=== PATIENT | female | born 1990 | race Caucasian/White ===

== ENCOUNTER → 2017-09-27 12:04 | Outpatient (CLI) | payer OTHER, SELFPAY ==
--- NOTE | 2017-09-27 12:07 | DI.US.S_ITS ---
PROCEDURE: US OB >= 14 WEEKS FETUS INDICATIONS: 20 WEEK SURVEY OUTSIDE/PRIOR DATING DATA: Last menstrual period (LMP): 05/10/2017. LMP-based estimated date of delivery (KAYLEN): 02/12/2018. First dating scan (date and location): 07/21/2017. Estimated date of delivery (KAYLEN) from first dating scan: 02/08/2018. TECHNIQUE: Real-time scanning was performed of the fetus, with image documentation and biometric measurements. Endovaginal scanning: None required COMPARISON: [facility], , OB COMPLETE LESS THAN 14 WKS, 07/21/2017, 13:13. [facility], , US OB >= 14 WEEKS FETUS, 09/15/2017, 12:30. FINDINGS: General: A single living intrauterine gestation is present. Presentation: Breech. Placenta: Placental position is anterior, without previa. Amniotic fluid index: 12.9 cm, normal range is 5-24 cm. heart rate: 155 beats per minute. Maternal cervical canal: 3.6 cm long. Normal lower limit is 2.5 cm. biometrics: Biparietal diameter: 20 weeks 5 days Head circumference: 20 weeks 4 days Abdominal circumference: 19 weeks 6 days Femur length: 20 weeks one day Estimated gestational age from initial scan: 20 weeks 6 days Composite gestational age from present scan: 20 weeks 2 days, normal growth Estimated weight and percentile: 330 g at the 12th percentile Measurement variability for biometric dating: +/- 7 days from 14 weeks to 15 weeks 6 days gestation, +/- 10 days from 16 weeks to 21 weeks 6 days gestation, +/- 2 weeks from 22 weeks to 27 weeks 6 days gestation, +/- 3 weeks for 28 weeks gestation or later. weight reference: 4500 g or EFW >90/95% is considered macrosomia or large for gestational age. EFW <10% is small for gestational age. EFW 5% or less is considered intra-uterine growth restriction. Anatomic survey: Neuro: Ventricles are non-dilated at less than 10 mm. Cisterna magna is normal at 3-11 mm. Cerebellum is normal in size and morphology. Nuchal skin fold: Normal at less than 6 mm between 14-21 weeks gestational age. Face: Nose and lips, facial profile are normal. Spine: No evidence for spina bifida. Heart: 4-chambered heart is present, ventricular outflow tracts not well seen secondary to position. Diaphragm: Diaphragm is intact. Stomach: Left-sided stomach is present. Kidneys: No hydronephrosis. Normal is less than 5 mm in 2nd trimester, less than 7 mm in 3rd trimester. Cord: 3-vessel cord has orthotopic insertion. Bladder: Normal in size. Extremities: All 4 extremities identified. IMPRESSION: Single, live intrauterine gestation in breech position showing composite gestational age of 20 weeks 2 days, normal growth and normal anatomy although cardiac outflow tracts are not well seen. Dictated by: Emery Hackett M.D. on 09/27/2017 at 14:16 Approved by: Emery Hackett M.D. on 09/27/2017 at 14:19
== END ==
PROVIDERS: PCP Family Medicine; Visit Provider Obstetrics & Gynecology
DX: Z34.92 Encounter for supervision of normal pregnancy, unspecified, second trimester (principal); Z3A.20 20 weeks gestation of pregnancy
CPT/HCPCS: 76811

== ENCOUNTER → 2017-11-17 09:58 | Outpatient (CLI) | payer OTHER, SELFPAY ==
[2017-11-17 12:27] LABS: Hematocrit 38.9 % (36-46); Hemoglobin 13.3 g/dL (12.0-16.0)
[2017-11-17 12:45] LABS: Free T4, Direct Thyroxine 1.33 ng/dL (0.78-2.19)
[2017-11-17 12:59] LABS: Thyroid Stimulating Hormone 2.31 uIU/mL (0.47-4.68)
[2017-11-17 21:44] LABS: GTT (PREG) 1 Hour PP 50gm Dose 61 mg/dL (76-139)
== END ==
PROVIDERS: Obstetrics & Gynecology; PCP Family Medicine; Visit Provider Family Medicine
DX: E03.9 Hypothyroidism, unspecified (principal); Z34.82 Encounter for supervision of other normal pregnancy, second trimester
CPT/HCPCS: 36415; 82950; 84439; 84443; 85014; 85018; 86850

== ENCOUNTER → 2018-01-12 16:53 | Outpatient (CLI) | payer OTHER, SELFPAY ==
[2018-01-13 21:22] LABS: Strep Grp B PCR NEG for Grp B Strep
== END ==
PROVIDERS: PCP Family Medicine; Visit Provider Obstetrics & Gynecology
DX: Z34.83 Encounter for supervision of other normal pregnancy, third trimester (principal)
CPT/HCPCS: 87653

== ENCOUNTER 2018-02-07 05:58 | Inpatient (IN) | payer OTHER, SELFPAY ==
[2018-02-07] MEDS: LACTATED RINGERS 1,000 ML 999 ML IV ×2 (06:40→07:42)
--- NOTE | 2018-02-07 07:21 | PM.PREOP ---
Pre-operative Note Interval Note Pre-op Check: Yes History & Physical Reviewed by Physician Changes: No
[2018-02-07 07:43] VITALS: BP 100/71
[2018-02-07 07:55] LABS: Add Manual Diff / Slide Review NO; Basophils Percent Auto 0.6 % (0-2); Eosinophils Percent Auto 1.5 % (2-4); Hematocrit 40.5 % (36-46); Hemoglobin 14.1 g/dL (12.0-16.0); Lymphocytes Percent Auto 26.8 % (25-40); Mean Corpuscular HGB Conc 34.8 % (30-36); Mean Corpuscular Hemoglobin 30.2 PG (26-34); Mean Corpuscular Volume 86.8 fL (80-100); Monocytes Percent Auto 4.2 % (3-14); Neutrophils Absolute Auto 6600 /uL (3000-5900); Neutrophils Percent Auto 66.9 % (50-75); Platelet Count 295 X10^3/uL (150-400); Red Blood Cell Count 4.67 X10^6/uL (4.0-5.2); White Blood Cell Count 9.8 X10^3/uL (4.5-11.0)
[2018-02-07] MEDS: CEFAZOLIN 2 GM/100 ML FROZ.PIGGY IV (08:05)
--- NOTE | 2018-02-07 08:46 | SUR.OPER ---
Supine on Padded OR bed, head on pillow, safety belt at thigh, arms secured on padded arm boards at <90 degrees abduction. Bump under right buttock. Legs uncrossed with pillow under knees, gel pad to heels, tape over blanket to lower legs.
[2018-02-07] MEDS: SODIUM CHLORIDE 0.9% 9 ML, TRIAMCINOLONE 10 MG INJ (08:56)
[2018-02-07 09:10] VITALS: BP 100/65; PULSE 66; RESP 13; TEMP 36.7; O2SAT 100
[2018-02-07 09:15] VITALS: BP 94/56; PULSE 69; RESP 14; O2SAT 100
[2018-02-07 09:20] VITALS: BP 93/59; PULSE 62; RESP 13; TEMP 36.7; O2SAT 100
[2018-02-07 09:25] VITALS: BP 90/58; PULSE 61; RESP 13; TEMP 36.8; O2SAT 100
--- NOTE | 2018-02-07 09:34 | P.OP_ITS ---
Operative Date/Time/Diagnoses Date of procedure: 02/07/18 Time of procedure: 09:29 Pre-op diagnosis: 39 weeks gestation Previous C section Keloid scar of Pfannenstiel incision Post-op diagnosis: same Procedure: Procedures Operation Date: 02/07/18 07:45 Actual Procedures Side Surgeon p Repeat Section with previous scar revision. Viable male at 0825, apgars 9/9 Jennifer Toribio MD Indications: 39 weeks gestation Previous section He laid scar of Pfannenstiel incision Surgeon: Jennifer Toribio Counselor Education Professor: Lizeth Salcido Anesthesia Type: Spinal (with Duramorph) Operative Notes Findings: Live male in the left occiput transverse presentation Normal uterus, tubes, and ovaries Keloid scar of the Pfannenstiel incision Fascial adhesions Closure Type: primary Specimen(s): other (Cord bloods, placenta) Applied: catheter Estimated blood loss (mL): 500 Blood products transfused: none Procedure in detail: The patient was taken to the operating room where she was placed in the seated position. Spinal anesthesia with Duramorph was administered. The patient was then placed in the dorsal supine position with a leftward tilt. She was prepped and draped in the usual sterile fashion. A timeout was performed. After spinal analgesia was found to be adequate, an elliptical incision was made around the keloid Pfannenstiel incision and the skin and underlying tissue were removed. The incision was carried through to the underlying layer of fascia. The fascia was nicked in the midline, and the incision extended bilaterally with the Camacho scissors. The superior aspect of the fascial incision was grasped with a Serg clamps, elevated, and the underlying rectus muscles dissected off sharply and bluntly. Attention was then turned to the inferior aspect of this incision which in a similar fashion was grasped with a Holabird clamps, elevated, and the underlying rectus muscles dissected off sharply and bluntly. The rectus muscles were in the midline. The peritoneum was identified, grasped between 2 hemostats well above the bladder, and entered sharply with the Metzenbaum scissors. This incision was extended superiorly and inferiorly with good visualization of the bladder. The bladder blade was inserted. The vesicouterine peritoneum was identified, grasped with the pickup, and entered sharply with the Metzenbaum scissors. This incision was extended bilaterally, and the bladder flap was created digitally. The bladder blade was reinserted. The lower uterine segment was incised in a transverse fashion with the scalpel. Upon entering the amniotic sac there was moderate amount of clear amniotic fluid. The infant's head was delivered without vacuum assistance. The nose and mouth were suctioned with bulb suction. The remainder of the body delivered without difficulty. The cord was double clamped and cut. The infant was handed off to waiting RN and RT. The placenta was delivered manually. The uterus was cleared of all clots and debris. The uterine incision was repaired with #1 chromic in a running interlocking fashion, and a second layer the same suture was used for an imbricating layer. Hemostasis was achieved. The tubes and ovaries were examined and were found to be normal. The gutters were cleared of all clots and debris. The bladder flap was reapproximated using 2-0 Vicryl in a running fashion. The parietal peritoneum was closed using 2-0 Vicryl in a running fashion. The fascia was reapproximated using 0 Vicryl in a running fashion. The subcutaneous layer was copiously irrigated with warm normal saline. 5 simple interrupted sutures of 3-0 Vicryl were placed to reapproximate the subcutaneous layer. The skin was closed with 4-0 undyed Vicryl in a subcuticular fashion. 10 cc of a solution of 10 mg of Kenalog in 9.9 cc of normal saline were injected along underneath the skin along the incision with 1 mg of Kenalog per cm of tissue. Steri-Strips were placed. An Aquacell dressing was placed. The uterus was expressed of a small amount of old blood. Sponge, lap, and instrument counts were correct x-2. The patient tolerated the procedure well, and was taken to PACU in stable condition. Complications: none Post-operative Condition: stable Disposition: PACU Plan for aftercare: To Center after recovery
[2018-02-07 09:39] VITALS: BP 92/63; PULSE 62; RESP 10; TEMP 36.8; O2SAT 100
[2018-02-07] MEDS: OXYCODONE/ACETAMINOPHEN 5/325 TABLET 2 TAB PO ×3 (11:26→19:30)
[2018-02-07] MEDS: LACTATED RINGERS 1,000 ML 100 ML IV (14:25)
[2018-02-07] MEDS: KETOROLAC 30 MG/ML VIAL IV ×2 (14:25→20:31)
[2018-02-08] MEDS: KETOROLAC 30 MG/ML VIAL IV (02:32)
[2018-02-08] MEDS: LEVOTHYROXINE 150 MCG TABLET PO (02:32)
[2018-02-08] MEDS: OXYCODONE/ACETAMINOPHEN 5/325 TABLET 2 TAB PO ×4 (03:34→20:03)
[2018-02-08 06:35] LABS: Hematocrit 40.8 % (36-46); Hemoglobin 14.2 g/dL (12.0-16.0)
[2018-02-08] MEDS: PRENATAL VIT,CALC/IRON/FOLIC 1 TABLET 1 TAB PO (07:51)
[2018-02-08] MEDS: DOCUSATE 250 MG CAPSULE PO (07:51)
[2018-02-08] MEDS: IBUPROFEN 600 MG TABLET PO ×3 (07:52→20:03)
[2018-02-09] MEDS: OXYCODONE/ACETAMINOPHEN 5/325 TABLET 2 TAB PO ×3 (00:06→08:10)
[2018-02-09] MEDS: IBUPROFEN 600 MG TABLET PO (02:16)
[2018-02-09] MEDS: LEVOTHYROXINE 150 MCG TABLET PO (04:00)
[2018-02-09 07:00] VITALS: BP 111/77; PULSE 76; RESP 16; TEMP 36.4
[2018-02-09] MEDS: PRENATAL VIT,CALC/IRON/FOLIC 1 TABLET 1 TAB PO (08:10)
[2018-02-09] MEDS: DOCUSATE 250 MG CAPSULE PO (08:10)
[2018-02-09 09:35] VITALS: BP 111/77; PULSE 76; RESP 16; TEMP 36.4
--- NOTE | 2018-04-18 12:45 | PM.DS.1 ---
History of Present Illness Date Patient Seen: 02/09/18 Time Patient Seen: 13:30 Chief complaint: [id number] Narrative: Patient is a 28-year-old 2 para 2 who presented on 02/07/2018 for a scheduled repeat section at 39 weeks gestation. Discharge Providers Date of admission: 02/07/18 05:58 Primary care physician: Lizeth Salcido DO Consults: 02/07/18 10:12 Consult to Nursing Clinical Director Routine Comment: Discharge provider: Jennifer Toribio MD Discharge Date: 02/09/18 Summary Discharge Diagnosis: 39 weeks gestation Previous section Repeat low-transverse section Hospital Course: Patient presented on 02/07/2018 for a scheduled repeat section. She underwent this procedure without complication. Her postoperative course was unremarkable and she was discharged home on 02/09/2018 tolerating a diet, pain well controlled, and voiding without the catheter. Exam Vital Signs (past 8 hours): Oxygen Delivery Method Room Air Narrative Exam Narrative: Generally: Patient is sitting up in bed, no acute distress Lungs: Clear to auscultation bilaterally Cardiovascular: Regular rate and rhythm Abdomen: Soft, flat, good bowel sounds Fundal height: U -1 Incision: Clean dry and intact with Aquacel dressing Extremities: Neg jacy's, no edema Extremities: Objective Labs Result Diagrams: 02/08/18 06:17 Discharge Plan Discharge Plan Patient Disposition: Home Discharge comment: Call with fever, chills, redness or drainage around incision or bleeding vaginally more than a pad in an hour Discharge Med Rec/Prescriptions Prescriptions: No Action levothyroxine 150 mcg tablet 150 mcg PO QAM Qty: 30 RF: 1 vit-iron fum-folic ac [Mynatal] 65 mg iron- 1 mg capsule 1 cap PO QDAY Qty: 90 RF: 3 Follow up/Referrals: Jennifer Toribio MD [Physician] - 1 Week (Next Wednesday for Aquacel removal; Friday, February 16 at 12:30pm.) Lizeth Salcido DO [Primary Care Provider] - Provider Discharge Instructions Diet: Diet as Tolerated Skin/Wound/Dressing Care Report to your healthcare provider any signs of infection, such as:: chills, fever, increased pain and unusual drainage Dressing: Do not remove Visit Report/Discharge Packet Instructions: DI for Visit Report Forms: Stroke Signs & Symptoms Discharge Data Primary Care Provider: Lizeth Salcido Attending Provider: Jennifer Toribio Admit Date/Time: 02/07/18 05:58 Discharges patient from system. Discharge Date/Time: 02/09/18 11:35
--- NOTE | 2018-04-18 12:49 | P.DS_ITS ---
History of Present Illness Date Patient Seen: 02/09/18 Time Patient Seen: 13:30 Chief complaint: [id number] Narrative: Patient is a 28-year-old 2 para 2 who presented on 2017 for a scheduled repeat section at 39 weeks gestation. Discharge Providers Date of admission: 02/07/18 05:58 Primary care physician: Lizeth Salcido DO Consults: 02/07/18 10:12 Consult to Offshore Wind Operations Manager Routine Comment: Discharge provider: Jennifer Toribio MD Discharge Date: 02/09/18 Summary Discharge Diagnosis: 39 weeks gestation Previous section Repeat low-transverse section Hospital Course: Patient presented on 02/07/2018 for a scheduled repeat section. She underwent this procedure without complication. Her postoperative course was unremarkable and she was discharged home on 2017 tolerating a diet, pain well controlled, and voiding without the catheter. Exam Vital Signs (past 8 hours): Oxygen Delivery Method Room Air Narrative Exam Narrative: Generally: Patient is sitting up in bed, no acute distress Lungs: Clear to auscultation bilaterally Cardiovascular: Regular rate and rhythm Abdomen: Soft, flat, good bowel sounds Fundal height: U -1 Incision: Clean dry and intact with Aquacel dressing Extremities: Neg jacy's, no edema Extremities: Objective Labs Result Diagrams: 02/08/18 06:17 Discharge Plan Discharge Plan Patient Disposition: Home Discharge comment: Call with fever, chills, redness or drainage around incision or bleeding vaginally more than a pad in an hour Discharge Med Rec/Prescriptions Prescriptions: No Action levothyroxine 150 mcg tablet 150 mcg PO QAM Qty: 30 RF: 1 vit-iron fum-folic ac [Mynatal] 65 mg iron- 1 mg capsule 1 cap PO QDAY Qty: 90 RF: 3 Follow up/Referrals: Jennifer Toribio MD [Physician] - 1 Week (Next Wednesday for Aquacel removal; Friday, February 16 at 12:30pm.) Lizeth Salcido DO [Primary Care Provider] - Provider Discharge Instructions Diet: Diet as Tolerated Skin/Wound/Dressing Care Report to your healthcare provider any signs of infection, such as:: chills, fever, increased pain and unusual drainage Dressing: Do not remove Visit Report/Discharge Packet Instructions: DI for Visit Report Forms: Stroke Signs & Symptoms Discharge Data Primary Care Provider: Lizeth Salcido Attending Provider: Jennifer Toribio Admit Date/Time: 02/07/18 05:58 Discharges patient from system. Discharge Date/Time: 02/09/18 11:35
== END 2018-02-09 11:35 | disposition home or self-care (01) | DRG 788 ==
PROVIDERS: Admitting Provider Obstetrics & Gynecology; PCP Family Medicine; Visit Provider Obstetrics & Gynecology
PROC: 10D00Z1 Extraction of Products of Conception, Low, Open Approach (ICD-10-PCS; CPT 59514; principal; 2018-02-07 07:45)
DX: O34.219 Maternal care for unspecified type scar from previous cesarean delivery (principal); Z3A.39 39 weeks gestation of pregnancy; Z37.0 Single live birth; O99.284 Endocrine, nutritional and metabolic diseases complicating childbirth; E03.9 Hypothyroidism, unspecified
CPT/HCPCS: 36415; 59050; 59510; 59514; 85014; 85018; 85025; 86850; 86900; 86901; J0690; J1885; J2405; J3010; J3301

== ENCOUNTER → 2018-05-26 14:08 | Outpatient (CLI) | payer OTHER, SELFPAY ==
[2018-05-26 16:04] LABS: Free T4, Direct Thyroxine 1.81 ng/dL (0.78-2.19)
[2018-05-26 16:18] LABS: Thyroid Stimulating Hormone < 0.02 uIU/mL (0.47-4.68)
== END ==
PROVIDERS: PCP Family Medicine; Visit Provider Obstetrics & Gynecology
DX: E03.9 Hypothyroidism, unspecified (principal)
CPT/HCPCS: 36415; 84439; 84443

== ENCOUNTER → 2018-07-11 13:59 | Outpatient (CLI) | payer OTHER, SELFPAY ==
[2018-07-11 18:47] LABS: Thyroid Stimulating Hormone 0.36 uIU/mL (0.47-4.68)
[2018-07-11 19:02] LABS: Free T4, Direct Thyroxine 1.27 ng/dL (0.78-2.19)
== END ==
PROVIDERS: PCP Family Medicine; Visit Provider Obstetrics & Gynecology
DX: E03.9 Hypothyroidism, unspecified (principal)
CPT/HCPCS: 36415; 84439; 84443

== ENCOUNTER → 2018-11-08 11:40 | Outpatient (CLI) | payer OTHER, SELFPAY ==
[2018-11-08 14:38] LABS: TSH w/ Reflex to FT4 < 0.02 uIU/mL (0.47-4.68)
[2018-11-08 16:29] LABS: Free T4, Direct Thyroxine 2.34 ng/dL (0.78-2.19)
== END ==
PROVIDERS: PCP Family Medicine; Visit Provider Family Medicine
DX: E03.9 Hypothyroidism, unspecified (principal)
CPT/HCPCS: 36415; 84439; 84443

== ENCOUNTER → 2019-01-31 08:52 | Outpatient (CLI) | payer OTHER, SELFPAY ==
[2019-01-31 10:27] LABS: TSH w/ Reflex to FT4 1.14 uIU/mL (0.47-4.68)
== END ==
PROVIDERS: PCP Family Medicine; Visit Provider Family Medicine
DX: E03.9 Hypothyroidism, unspecified (principal)
CPT/HCPCS: 36415; 84443

== ENCOUNTER → 2019-07-03 12:39 | Outpatient (CLI) | payer OTHER, SELFPAY ==
[2019-07-03 14:43] LABS: TSH w/ Reflex to FT4 0.24 uIU/mL (0.47-4.68)
[2019-07-03 15:29] LABS: Free T4, Direct Thyroxine 1.77 ng/dL (0.78-2.19)
== END ==
PROVIDERS: PCP Family Medicine; Referring Provider Family Medicine; Visit Provider Family Medicine
DX: E03.9 Hypothyroidism, unspecified (principal)
CPT/HCPCS: 36415; 84439; 84443

== ENCOUNTER → 2019-09-01 15:40 | Outpatient (CLI) | payer OTHER, SELFPAY ==
[2019-09-01 17:33] LABS: TSH w/ Reflex to FT4 8.31 uIU/mL (0.47-4.68)
[2019-09-01 18:05] LABS: Free T4, Direct Thyroxine 1.26 ng/dL (0.78-2.19)
== END ==
PROVIDERS: PCP Family Medicine; Referring Provider Family Medicine; Visit Provider Family Medicine
DX: E03.9 Hypothyroidism, unspecified (principal)
CPT/HCPCS: 36415; 84439; 84443

== ENCOUNTER → 2019-10-19 12:05 | Outpatient (CLI) | payer OTHER, SELFPAY ==
[2019-10-19 13:46] LABS: TSH w/ Reflex to FT4 4.75 uIU/mL (0.47-4.68)
[2019-10-19 14:14] LABS: Free T4, Direct Thyroxine 1.33 ng/dL (0.78-2.19)
== END ==
PROVIDERS: PCP Family Medicine; Referring Provider Family Medicine; Visit Provider Family Medicine
DX: E03.9 Hypothyroidism, unspecified (principal)
CPT/HCPCS: 36415; 84439; 84443

== ENCOUNTER → 2019-12-06 15:11 | Outpatient (CLI) | payer OTHER, SELFPAY ==
[2019-12-06 16:52] LABS: TSH w/ Reflex to FT4 1.04 uIU/mL (0.47-4.68)
== END ==
PROVIDERS: PCP Family Medicine; Referring Provider Family Medicine; Visit Provider Family Medicine
DX: E03.9 Hypothyroidism, unspecified (principal)
CPT/HCPCS: 36415; 84443

== ENCOUNTER → 2020-06-26 13:00 | Outpatient (CLI) | payer OTHER, SELFPAY ==
[2020-06-26 14:05] LABS: Add Manual Diff / Slide Review NO; Basophils Absolute Auto 0 /uL (0-100); Basophils Percent Auto 0.5 % (0-2); Eosinophils Absolute Auto 200 /uL (0-450); Eosinophils Percent Auto 2.9 % (2-4); Hematocrit 42.6 % (36-46); Hemoglobin 14.3 g/dL (12.0-16.0); Lymphocytes Absolute Auto 1800 /uL (1100-4500); Lymphocytes Percent Auto 25.8 % (25-40); Mean Corpuscular HGB Conc 33.6 % (30-36); Mean Corpuscular Hemoglobin 28.8 PG (26-34); Mean Corpuscular Volume 85.8 fL (80-100); Monocytes Absolute Auto 400 /uL (0-900); Monocytes Percent Auto 5.6 % (3-14); Neutrophils Absolute Auto 4500 /uL (1500-7000); Neutrophils Percent Auto 65.2 % (50-75); Platelet Count 335 X10^3/uL (150-400); Red Blood Cell Count 4.97 X10^6/uL (4.0-5.2); Red Cell Distribution Width 12.5 % (11.6-14.8); White Blood Cell Count 6.9 X10^3/uL (4.5-11.0)
[2020-06-26 14:12] LABS: Alanine Aminotransferase 13 IU/L (<35); Albumin 4.7 g/dL (3.5-5.0); Albumin Globulin Ratio 1.3 (1.0-2.8); Alkaline Phosphatase 52 U/L (38-126); Aspartate Aminotransferase 34 IU/L (14-36); BUN Creatinine Ratio 17.5 (6-22); Bilirubin Total 0.6 mg/dL (0.2-1.3); Blood Urea Nitrogen 10 mg/dL (7-17); Calcium 9.5 mg/dL (8.4-10.2); Carbon Dioxide 22 mmol/L (22-32); Chloride 105 mmol/L (98-107); Estimated Glomerular Filt Rate > 60.0 mL/min (>60); Globulin 3.5 g/dL (1.7-4.1); Glucose 84 mg/dL (70-100); Potassium 4.3 mmol/L (3.4-5.1); Sodium 135 mmol/L (137-145); Total Protein 8.2 g/dL (6.3-8.2)
[2020-06-26 14:15] LABS: HEMOLYSIS 101 (0-50)
[2020-06-26 15:10] LABS: TSH w/ Reflex to FT4 0.13 uIU/mL (0.47-4.68)
[2020-06-26 16:43] LABS: Free T4, Direct Thyroxine 2.05 ng/dL (0.78-2.19)
== END ==
PROVIDERS: PCP Family Medicine; Referring Provider Family Medicine; Visit Provider Family Medicine
DX: E03.9 Hypothyroidism, unspecified (principal)
CPT/HCPCS: 36415; 80053; 84439; 84443; 85025

== ENCOUNTER → 2020-08-14 12:49 | Outpatient (CLI) | payer OTHER, SELFPAY ==
[2020-08-14 16:31] LABS: TSH w/ Reflex to FT4 0.15 uIU/mL (0.47-4.68)
[2020-08-14 18:15] LABS: Free T4, Direct Thyroxine 1.62 ng/dL (0.78-2.19)
== END ==
PROVIDERS: PCP Family Medicine; Referring Provider Family Medicine; Visit Provider Family Medicine
DX: E03.9 Hypothyroidism, unspecified (principal)
CPT/HCPCS: 36415; 84439; 84443

== ENCOUNTER → 2021-03-20 16:24 | Outpatient (CLI) | payer OTHER, SELFPAY ==
[2021-03-20 18:17] LABS: TSH w/ Reflex to FT4 1.48 uIU/mL (0.47-4.68)
== END ==
PROVIDERS: PCP Family Medicine; Referring Provider Family Medicine; Visit Provider Family Medicine
DX: E03.9 Hypothyroidism, unspecified (principal)
CPT/HCPCS: 36415; 84443

== ENCOUNTER → 2021-08-05 15:04 | Outpatient (CLI) | payer OTHER, SELFPAY ==
[2021-08-05 16:44] LABS: TSH w/ Reflex to FT4 3.02 uIU/mL (0.47-4.68)
== END ==
PROVIDERS: PCP Family Medicine; Referring Provider Family Medicine; Visit Provider Family Medicine
DX: E03.9 Hypothyroidism, unspecified (principal)
CPT/HCPCS: 36415; 84443

== ENCOUNTER → 2021-12-10 15:41 | Outpatient (CLI) | payer OTHER, SELFPAY ==
--- NOTE | 2021-12-10 15:42 | DI.RAD.S_ITS ---
PROCEDURE: XR KNEE RT 3V INDICATIONS: Dislocated patella(?) knee pain, injury 12/06 TECHNIQUE: 3 views of the knee were acquired. COMPARISON: None. FINDINGS: Bones: No fractures or dislocations. No patellar dislocation or subluxation is noted. No suspicious bony lesions. Soft tissues: Small to moderate suprapatellar joint effusion is seen. No suspicious soft tissue calcifications. IMPRESSION: No right knee fracture or dislocation. Patella alignment is anatomic. Small to moderate joint effusion. Dictated by: Rosalino Patel M.D. on 12/10/2021 at 15:44 Approved by: Rosalino Patel M.D. on 12/10/2021 at 15:44
== END ==
PROVIDERS: PCP Family Medicine; Referring Provider Physician Assistant; Visit Provider Physician Assistant
DX: M25.561 Pain in right knee; S89.91XA Unspecified injury of right lower leg, initial encounter; M25.461 Effusion, right knee; X58.XXXA Exposure to other specified factors, initial encounter
CPT/HCPCS: 73562

== ENCOUNTER → 2022-04-01 09:38 | Outpatient (CLI) | payer OTHER, SELFPAY | PROVIDERS: PCP Family Medicine; Referring Provider Family Medicine; Visit Provider Family Medicine | DX: E03.9 Hypothyroidism, unspecified (principal) | CPT/HCPCS: 36415; 84443 ==

== ENCOUNTER → 2022-07-28 10:13 | Outpatient (CLI) | payer OTHER, SELFPAY ==
[2022-07-28 11:55] LABS: Add Manual Diff / Slide Review NO; Basophils Absolute Auto 100 /uL (0-100); Basophils Percent Auto 0.7 % (0-2); Eosinophils Absolute Auto 200 /uL (0-450); Eosinophils Percent Auto 2.5 % (2-4); Hematocrit 42.6 % (36-46); Hemoglobin 14.3 g/dL (12.0-16.0); Lymphocytes Absolute Auto 1600 /uL (1100-4500); Lymphocytes Percent Auto 22.9 % (25-40); Mean Corpuscular HGB Conc 33.5 % (30-36); Mean Corpuscular Hemoglobin 28.7 PG (26-34); Mean Corpuscular Volume 85.9 fL (80-100); Monocytes Absolute Auto 500 /uL (0-900); Monocytes Percent Auto 6.6 % (3-14); Neutrophils Absolute Auto 4700 /uL (1500-7000); Neutrophils Percent Auto 67.3 % (50-75); Platelet Count 402 X10^3/uL (150-400); Red Blood Cell Count 4.96 X10^6/uL (4.0-5.2); Red Cell Distribution Width 12.6 % (11.6-14.8)
[2022-07-28 12:43] LABS: Ferritin 71 ng/mL (6-137); TSH w/ Reflex to FT4 1.24 uIU/mL (0.47-4.68)
== END ==
PROVIDERS: PCP Family Medicine; Referring Provider Family Medicine; Visit Provider Family Medicine
DX: L65.9 Nonscarring hair loss, unspecified (principal)
CPT/HCPCS: 36415; 82728; 84443; 85025

== ENCOUNTER → 2023-03-16 14:22 | Outpatient (CLI) | payer OTHER, SELFPAY ==
[2023-03-16 15:09] LABS: Add Manual Diff / Slide Review NO; Basophils Absolute Auto 0 /uL (0-100); Basophils Percent Auto 0.7 % (0-2); Eosinophils Absolute Auto 200 /uL (0-450); Eosinophils Percent Auto 2.5 % (2-4); Hematocrit 40.5 % (36-46); Hemoglobin 13.9 g/dL (12.0-16.0); Lymphocytes Absolute Auto 1300 /uL (1100-4500); Lymphocytes Percent Auto 19.3 % (25-40); Mean Corpuscular HGB Conc 34.4 % (30-36); Mean Corpuscular Hemoglobin 29.7 PG (26-34); Mean Corpuscular Volume 86.2 fL (80-100); Monocytes Absolute Auto 400 /uL (0-900); Monocytes Percent Auto 6.1 % (3-14); Neutrophils Absolute Auto 4900 /uL (1500-7000); Neutrophils Percent Auto 71.4 % (50-75); Platelet Count 372 X10^3/uL (150-400); Red Blood Cell Count 4.69 X10^6/uL (4.0-5.2); Red Cell Distribution Width 12.9 % (11.6-14.8); White Blood Cell Count 6.8 X10^3/uL (4.5-11.0)
[2023-03-16 15:17] LABS: Alanine Aminotransferase 14 IU/L (<35); Albumin 4.3 g/dL (3.5-5.0); Albumin Globulin Ratio 1.4 (1.0-2.8); Alkaline Phosphatase 54 U/L (38-126); Aspartate Aminotransferase 24 IU/L (14-36); BUN Creatinine Ratio 14.9 (6-22); Bilirubin Total 0.8 mg/dL (0.2-1.3); Blood Urea Nitrogen 11 mg/dL (7-17); Calcium 9.9 mg/dL (8.4-10.2); Carbon Dioxide 23 mmol/L (22-32); Chloride 103 mmol/L (98-107); Estimated Glomerular Filt Rate > 60 mL/min (>60); Glucose 89 mg/dL (70-100); HEMOLYSIS < 15 (0-50); Potassium 4.2 mmol/L (3.4-5.1); Sodium 135 mmol/L (137-145); Total Protein 7.3 g/dL (6.3-8.2)
[2023-03-16 16:39] LABS: Vitamin D 25 Hydroxy (D3) 33.9 ng/mL (30.0-100.0)
[2023-03-16 16:53] LABS: TSH w/ Reflex to FT4 9.05 uIU/mL (0.47-4.68)
[2023-03-16 17:19] LABS: Free T4, Direct Thyroxine 1.39 ng/dL (0.78-2.19)
== END ==
PROVIDERS: PCP Student in an Organized Health Care Education/Training Program; Referring Provider Student in an Organized Health Care Education/Training Program; Visit Provider Student in an Organized Health Care Education/Training Program
DX: Z00.00 Encounter for general adult medical examination without abnormal findings (principal)
CPT/HCPCS: 36415; 80053; 82306; 84439; 84443; 85025

== ENCOUNTER → 2023-06-10 14:25 | Outpatient (CLI) | payer OTHER, SELFPAY ==
[2023-06-10 15:48] LABS: TSH w/ Reflex to FT4 3.93 uIU/mL (0.47-4.68)
== END ==
PROVIDERS: PCP Student in an Organized Health Care Education/Training Program; Referring Provider Student in an Organized Health Care Education/Training Program; Visit Provider Student in an Organized Health Care Education/Training Program
DX: E03.9 Hypothyroidism, unspecified (principal)
CPT/HCPCS: 36415; 84443

== ENCOUNTER → 2023-10-27 11:59 | Outpatient (CLI) | payer OTHER, SELFPAY ==
[2023-10-27 13:54] LABS: TSH w/ Reflex to FT4 0.23 uIU/mL (0.47-4.68)
[2023-10-27 14:22] LABS: Free T4, Direct Thyroxine 1.64 ng/dL (0.78-2.19)
== END ==
PROVIDERS: PCP Student in an Organized Health Care Education/Training Program; Referring Provider Student in an Organized Health Care Education/Training Program; Visit Provider Student in an Organized Health Care Education/Training Program
DX: E03.9 Hypothyroidism, unspecified (principal)
CPT/HCPCS: 36415; 84439; 84443

== ENCOUNTER → 2024-06-30 09:51 | Outpatient (CLI) | payer OTHER, SELFPAY ==
[2024-06-30 11:21] LABS: Free T4, Direct Thyroxine 1.95 ng/dL (0.78-2.19)
[2024-06-30 11:34] LABS: Thyroid Stimulating Hormone 0.433 uIU/mL (0.47-4.68)
== END ==
PROVIDERS: PCP Student in an Organized Health Care Education/Training Program; Referring Provider Student in an Organized Health Care Education/Training Program; Visit Provider Student in an Organized Health Care Education/Training Program
DX: E03.9 Hypothyroidism, unspecified (principal)
CPT/HCPCS: 36415; 84439; 84443; 84481

== ENCOUNTER → 2024-11-01 10:42 | Outpatient (CLI) | payer OTHER, SELFPAY | PROVIDERS: PCP Student in an Organized Health Care Education/Training Program; Visit Provider Chiropractor | DX: J02.9 Acute pharyngitis, unspecified (principal) | CPT/HCPCS: 87070 ==